=== PATIENT | male | born 1970 | race Caucasian/White ===

== ENCOUNTER 2025-07-08 02:48 | Inpatient (IN) | payer OTHER, SELFPAY ==
[2025-07-07 19:07] VITALS: BP 113/70
[2025-07-07 19:33] LABS: Hematocrit 40.5 % (39.0-52.0); Hemoglobin 13.6 g/dL (13.0-18.0); Mean Corp Hgb Conc. 33.6 g/dL (33.0-37.0); Mean Corpuscular Volume 86.4 fL (80.0-94.0); Nucleated Red Blood Cells % 0 % (-); Platelet Count 210 10^3/uL (130-400); Red Cell Dist. Width 12.4 % (11.5-14.5)
[2025-07-07 19:49] LABS: COVID-19 Antigen Negative (Negative)
[2025-07-07 19:54] LABS: ALT (SGPT) 13 U/L (0-50); AST (SGOT) 16 U/L (17-59); Albumin 3.9 g/dl (3.5-5.0); Alkaline Phosphatase 78 U/L (38-126); Blood Urea Nitrogen 16 mg/dl (9-20); Calcium 9.2 mg/dl (8.4-10.2); Carbon Dioxide 25 mmol/L (22-30); Chloride 104 mmol/L (98-107); Glucose 116 mg/dl (70-99); Potassium 4.1 mmol/L (3.5-5.1); Sodium 136 mmol/L (135-145); Total Protein 6.1 g/dl (6.3-8.2); eGFR > 60.00
[2025-07-07 23:36] VITALS: BP 101/61
[2025-07-08] VITALS (10 sets, daily range): BP systolic 91–120; BP diastolic 57–70; BMI 38.0
[2025-07-08 00:04] LABS: Urine Character Slightly Cloudy (Clear)
--- NOTE | 2025-07-08 00:30 | ED.GENMED ---
History of Present Illness
<Nicolás Garcia MD, Resident - Last Filed: 07/08/25 01:32>
General
Chief Complaint: Fever
Source: patient and family
Time Seen by Provider: 07/08/25 00:28
Nursing documentation reviewed up to this point in time: agreed with
History of Present Illness
History of Present Illness:
55-year-old male with a past medical history of hyperlipidemia, interstitial lung disease, sleep apnea, type 2 diabetes and recent nephrostomy tube placement 2 weeks ago for a large kidney stone that measured around 1 cm x 7 mm in his left ureter
comes to the ED due to chills and fever that started earlier this morning. Patient had some fatigue alongside the symptoms however had no shortness of breath, headaches, nausea, vomiting or abdominal pain. Patient did not have any back pain but
did endorse having fatigue. [place] from [place] and says that he called his urologist who told him to go to the ED for potential UTI.
Past History
<Nicolás Garcia MD, Resident - Last Filed: 07/08/25 01:32>
Past History
ED Past Medical History: Hypercholesterolemia, NIDDM, Other (Nephrostomy tube placement for left kidney stone), Other (Sleep apnea) and Other (Interstitial lung disease on cellcept)
ED Past Surgical History: Orthopedic (Hand surgery) and Urological (Nephrostomy tube placed 06/2025, kidney stone removal)
Patient has exhibited threatening behavior?: No
Review of Systems
<Nicolás Garcia MD, Resident - Last Filed: 07/08/25 01:32>
Review of Systems
Allergies reviewed?: Yes
Other source history: family
Constitutional: Reports fever, fatigue and chills
EENT: Reports no symptoms
Respiratory: Reports no symptoms
Cardiac: Reports no symptoms
ABD/GI: Reports no symptoms
: Reports no symptoms
Musculoskeletal: Reports no symptoms
Skin: Reports no symptoms
Neurological: Reports no symptoms
Endocrine: Reports no symptoms
Hematologic/Lymphatic: Reports no symptoms
Psychiatric: Reports no symptoms
Phy Exam
<Nicolás Garcia MD, Resident - Last Filed: 07/08/25 01:32>
General Physical Exam
General Presentation: well appearing and no apparent distress
General Skin: warm and dry
General Habitus: normal and obese
General Mental: alert
General Hydration: appears well hydrated
Cardiovascular Exam
Cardiovascular Exam: regular rate/rhythm, no edema and no murmur
Pulmonary Exam
Pulmonary Exam: lungs clear, no respiratory distress, no crackles and no wheezing
Gastrointestinal Exam
Gastrointestinal Exam: normal bowel sounds, non tender, soft and non distended
Musculoskeletal Exam
Musculoskeletal Exam: no edema
Skin Exam
Skin Exam: normal color and warm/dry
Course
<Nicolás Garcia MD, Resident - Last Filed: 07/08/25 01:32>
Orders/Labs/Results
Orders:
Orders
07/07/25 19:17
COVID-19 Antigen Urgent
Source: Nasal Swab
Influenza A+B Rapid Molecular Urgent
JOHN Source: Nasal Swab
Specimen Description:
07/07/25 19:19
Complete Blood Count/With Diff Urgent
Comprehensive Metabolic Panel Urgent
Lactic Acid Q4H
Comment: ON ICE, CANCEL 2ND ORDER IF FIRST LACTIC ACID LEVEL <2
07/07/25 23:33
Urinalysis Reflex To Culture Urgent
Date Specimen was Collected: 07/07/25
Time Specimen was Collected: 23:30
Urine Microscopic Reflex Cult Urgent
Urine Culture Urgent
JOHN Source: U
Specimen Description:
Date Specimen was Collected: 07/07/25
Time Specimen was Collected: 23:30
07/08/25 01:09
IV Insert/Care/Rem.- Treatment PRN
0.9% Sodium Chloride 1000 ml [Nss] 1,000 ml IV BOLUS
Pulse Ox/cont/shift [RESP] Urgent
Quantity: 1
07/08/25 01:12
US Renal Only W/O Bladder Urgent
Comment:
Reason For Exam: left nephrostomy tube presents w/ fever and chills
07/08/25 01:15
Blood Culture Q30M
JOHN Source: Blood/Venous
Specimen Description:
07/08/25 01:16
CefTRIAXone [Rocephin] 2,000 mg IV NOW STA
07/08/25 01:45
Blood Culture Q30M
JOHN Source: Blood/Venous
Specimen Description:
Abnormal Lab Results
07/07/25 07/07/25
19:19 23:33
WBC 15.0 H 10^3/uL
(4.8-10.8)
RBC 4.69 L 10^6/uL
(4.70-6.10)
Abs Immat Gran (auto) 0.1 H 10^3/uL
(0-0.05)
Absolute Neuts (auto) 11.9 H 10^3/uL
(1.4-6.5)
Absolute Monos (auto) 1.1 H 10^3/uL
(0.1-0.6)
Neutrophils % 78.7 H %
(42.2-75.2)
Lymphocytes % 13.2 L %
(20.5-51.1)
Glucose 116 H mg/dl
(70-99)
AST 16 L U/L
(17-59)
Total Protein 6.1 L g/dl
(6.3-8.2)
Urine Ketones 1+ A
(Negative)
Ur Occult Blood Reflex 4+ A
(Negative)
Leukocyte Esterase Rfl 3+ A
(Negative)
Urine RBC >100 A /HPF
(0-2)
Urine WBC (Reflex) >100 A /HPF
(0-5)
Urine Bacteria (Reflex) Many A
(Negative)
Urine Albumin (Reflex) 3+ A
(Neg - Trace)
07/07/25 19:19
07/07/25 19:19
Vital Signs
Initial and Last Documented VS:
Initial Vital Signs
Temp Pulse Resp BP Pulse Ox
99.7 F 85 20 113/70 98
07/07/25 19:07 07/07/25 19:07 07/07/25 19:07 07/07/25 19:07 07/07/25 19:07
Last Documented Vital Signs
Temp Pulse Resp BP Pulse Ox
99.7 F 85 20 95/60 94
07/07/25 19:07 07/07/25 19:07 07/07/25 19:07 07/08/25 00:30 07/08/25 00:39
<Lulu Perez, DO - Last Filed: 07/08/25 01:21>
Orders/Labs/Results
Orders:
Orders
07/07/25 19:17
COVID-19 Antigen Urgent
Source: Nasal Swab
Influenza A+B Rapid Molecular Urgent
JOHN Source: Nasal Swab
Specimen Description:
07/07/25 19:19
Complete Blood Count/With Diff Urgent
Comprehensive Metabolic Panel Urgent
Lactic Acid Q4H
Comment: ON ICE, CANCEL 2ND ORDER IF FIRST LACTIC ACID LEVEL <2
07/07/25 23:33
Urinalysis Reflex To Culture Urgent
Date Specimen was Collected: 07/07/25
Time Specimen was Collected: 23:30
Urine Microscopic Reflex Cult Urgent
Urine Culture Urgent
JOHN Source: U
Specimen Description:
Date Specimen was Collected: 07/07/25
Time Specimen was Collected: 23:30
07/08/25 01:09
IV Insert/Care/Rem.- Treatment PRN
0.9% Sodium Chloride 1000 ml [Nss] 1,000 ml IV BOLUS
Pulse Ox/cont/shift [RESP] Urgent
Quantity: 1
07/08/25 01:12
US Renal Only W/O Bladder Urgent
Comment:
Reason For Exam: left nephrostomy tube presents w/ fever and chills
07/08/25 01:15
Blood Culture Q30M
JOHN Source: Blood/Venous
Specimen Description:
07/08/25 01:16
CefTRIAXone [Rocephin] 2,000 mg IV NOW STA
07/08/25 01:45
Blood Culture Q30M
JOHN Source: Blood/Venous
Specimen Description:
Abnormal Lab Results
07/07/25 07/07/25
19:19 23:33
WBC 15.0 H 10^3/uL
(4.8-10.8)
RBC 4.69 L 10^6/uL
(4.70-6.10)
Abs Immat Gran (auto) 0.1 H 10^3/uL
(0-0.05)
Absolute Neuts (auto) 11.9 H 10^3/uL
(1.4-6.5)
Absolute Monos (auto) 1.1 H 10^3/uL
(0.1-0.6)
Neutrophils % 78.7 H %
(42.2-75.2)
Lymphocytes % 13.2 L %
(20.5-51.1)
Glucose 116 H mg/dl
(70-99)
AST 16 L U/L
(17-59)
Total Protein 6.1 L g/dl
(6.3-8.2)
Urine Ketones 1+ A
(Negative)
Ur Occult Blood Reflex 4+ A
(Negative)
Leukocyte Esterase Rfl 3+ A
(Negative)
Urine RBC >100 A /HPF
(0-2)
Urine WBC (Reflex) >100 A /HPF
(0-5)
Urine Bacteria (Reflex) Many A
(Negative)
Urine Albumin (Reflex) 3+ A
(Neg - Trace)
07/07/25 19:19
07/07/25 19:19
Vital Signs
Initial and Last Documented VS:
Initial Vital Signs
Temp Pulse Resp BP Pulse Ox
99.7 F 85 20 113/70 98
07/07/25 19:07 07/07/25 19:07 07/07/25 19:07 07/07/25 19:07 07/07/25 19:07
Last Documented Vital Signs
Temp Pulse Resp BP Pulse Ox
99.7 F 85 20 95/60 94
07/07/25 19:07 07/07/25 19:07 07/07/25 19:07 07/08/25 00:30 07/08/25 00:39
<Nicolás Garcia MD, Resident - Last Filed: 07/08/25 01:32>
MDM/Problems Addressed
Differential Diagnosis Includes:
Urinary tract infection, sepsis, pyelonephritis
MDM/Problems Addressed:
55-year-old male with a past medical history of hyperlipidemia, urinary stones with left nephrostomy tube 2 weeks ago and interstitial lung disease comes to the ED due to fever chills and fatigue that started this morning.
Urinalysis positive for UTI but may have some pyelonephritis due to potential nephrostomy tube blocking. Will get renal ultrasound.
CBC shows leukocytosis
No fever here (max 99.7F)
Blood pressure low (91/61), will give IV fluid bolus
Will get 2 sets of blood cultures
Will start antibiotic treatment with Rocephin
Will get Renal US to check placement of nephrostomy tube and if there might be any hydronephrosis
Chronic conditions affecting care: Other (Nephrolithiasis)
<Nicolás Garcia MD, Resident - Last Filed: 07/08/25 01:32>
*Pulse Oximetry
SaO2: 97
Oxygen Mode of Delivery: Room air
Patient hypoxic: no
*Critical Care Note
Total Time (30-74mins, 75-104mins- exclusive of procedures): Not Applicable
ED Attending Note
<Nicolás Garcia MD, Resident - Last Filed: 07/08/25 01:32>
-
Portions of this chart may have been created with voice recognition software.� Occasional wrong word or��sound alike� substitutions may have occurred due to the inherent limitations of voice recognition software.
<Lulu Perez DO - Last Filed: 07/08/25 01:21>
ED Attending Note
Patient seen and examined by attending physician: Yes
I performed the substantive portion of visit, reviewed & personally made and approve the management plan that is documented in note by myself or AMNA.: Yes
ED Attending Note:
This is a 55-year-old gentleman with history of interstitial lung disease, maintained on CellCept. History of xkl-mfrdflu-nexvxmogy diabetes maintained on Mounjaro as well as history of hyperlipidemia, GERD. He also has history of kidney stones
and was intermittently found to have a large obstructing left renal pelvic stone on follow-up chest imaging a few weeks ago. Unsuccessful ureteral stenting thus a left nephrostomy tube was placed 2 weeks ago. He follows with specialist at [facility]. He has a follow-up appointment with urologist on Wednesday, July 10.
He is camping this weekend, locally and developed chills, aches, fever this afternoon. No cough no shortness of breath, he denies flank pain, no dysuria urgency or hematuria. Urostomy tube continues to function normally.
55-year-old gentleman appears his stated age, awake and alert, pleasant, appears in no acute distress. Low-grade fever noted. Also noted to be borderline hypotensive with systolic 95-100.
Oral mucosa is moist.
Lungs are clear to auscultation. No respiratory distress.
Abdomen is soft without appreciable tenderness. No CVA tenderness. Left nephrostomy tube in place.
Concern for sepsis, UTI, other consideration is pneumonia however he has had no pulmonary symptoms.
With history of interstitial lung disease, chronically maintained on CellCept as well as history of diabetes he is at risk for immunocompromise.
Labs reveal elevated white blood cell count of 15. Chemistries are unremarkable. Lactic acid reassuring at 1.1.
Urinalysis consistent with UTI with many bacteria, greater than 100 WBCs, greater than 100 RBCs. Highly concerning for pyelonephritis and due to immunocompromise, hypotension, concern for bacteremia/sepsis.
Will initiate IV fluid bolus, initiate IV antibiotics. Blood cultures x 2. Urine culture is pending.
Due to concern for rapid decompensation, further hypotension patient will require acute hospitalization.
Discharge Plan
Departure
Patient Disposition: Admit
Date of Disposition: 07/08/25
Time of Disposition: 01:31
Admit to: Med/Surg
Admit to doctor: Dr. Kc
Presentation/result/management discussed w/ accepting MD/DO: Hospitalist
Patient with high blood pressure during this ER visit?: No
Condition: Serious
Discharge Problem:
Urinary tract infection
Referrals:
UNKNOWN - PT DOES,NOT KNOW [Family Provider]
Interventions
Interventions:
*Risk Screen - Suicide Last Done: 07/07/25 19:07
*General Assessment Last Done: 07/07/25 19:07
*Neglect/Abuse Screening Last Done: 07/07/25 19:07
Discharge Date and Time
Print Language: DIVEHI
[2025-07-08 00:45] LABS: Urine Squamous Cell >30 /LPF (Few)
[2025-07-08 00:46] LABS: Urine White Cell >100 /HPF (0-5)
[2025-07-08 00:49] LABS: Urine Red Blood Cell >100 /HPF (0-2)
--- NOTE | 2025-07-08 02:15 | HPS.HSE ---
Family Physician
-
Family Physician: NOT KNOW UNKNOWN - PT DOES
Chief Complaint
-
Fever
History of Present Illness
This is a 55-year-old with past medical history of interstitial lung disease on CellCept, hyperlipidemia, KI on CPAP, GERD and diet-controlled diabetes who presents to the emergency department with fever.
Patient reportedly has left-sided nephrostomy tube that was placed for an obstructing left ureteral stone measuring about 1 cm in maximum extent by 0.7 cm. This was done at [facility] in [place]. Patient had no febrile illness at that
time. Tube was placed for decompression and he was started on omeprazole with follow-up coming up this Wednesday or Wednesday.
At home he started feeling sick this morning. He felt weak. He had chills. They measured a temperature of greater than 101 degrees at home and patient was brought to the emergency department.
He noticed no bloody drainage from the catheter site. The nephrostomy tube continues to drain yellow urine in the same rate as previously. He denies having any dysuria at home. He denies having any flank pain.
He denies having any cough. He denies any shortness of breath.
In the emergency department his Tmax was 99.7, blood pressure was 99/60 with a pulse of 85 and he was satting 98% on room air.
White count was 15 with normal hemoglobin and platelets. His electrolytes BUN and creatinine were all normal. UA was positive for leukocyte esterase WBCs and bacteria.
Ultrasound of the kidneys pending
Medical History
Past Medical History
Past Medical History: Reports Hypercholesterolemia, NIDDM and Other (Interstitial lung disease on CellCept, nephrolithiasis, sleep apnea)
Past Surgical History: Reports Urological (Nephrostomy tube)
Social History
Tobacco: Non-smoker
Alcohol: None
Drug: None
Personal:
Family History
Family History: Not pertinent
Allergies / Home Medications
Allergies reflects when Allergies were last updated in [employer].
Home Medications with original date entered in [employer]
Allergy/Medication List:
Allergies
Allergy/AdvReac Type Severity Reaction Status Date / Time
No Known Allergies Allergy Unverified 07/07/25 19:06
Tamsulosin 0.4 mg capsule, 0.4 mg p.o. daily
CellCept 500 mg tablets, 1000 mg p.o. twice daily
Omeprazole 40 mg tablets, 40 mg p.o. daily
Rosuvastatin 20 mg tablets, 20 mg p.o. every afternoon
Review of Systems
-
History Source: Patient
Constitutional: Reports Fever, Fatigue and Chills
EENT: Reports No Symptoms
Respiratory: Reports No Symptoms
Cardiac: Reports No Symptoms
Abdomen/GI: Reports No Symptoms
: Reports Other (Nephrostomy tube)
Musculoskeletal: Reports No Symptoms
Skin: Reports No Symptoms
Neurological: Reports No Symptoms
Endocrine: Reports No Symptoms
Hematologic/Lymphatic: Reports No Symptoms
Psych: Reports No Symptoms
Physical Exam
Vital Signs
Vital Signs
Temp Pulse Resp BP Pulse Ox
99.7 F 85 20 95/60 94
07/07/25 19:07 07/07/25 19:07 07/07/25 19:07 07/08/25 00:30 07/08/25 00:39
Physical Exam
General: Well Developed, Well Nourished and No Apparent Distress
HEENT: NormoCephalic, Moist mucous membranes and Atraumatic
Respiratory: Clear
Cardiac: S1/S2 and Regular Rhythm; No Murmur or Rub
GI: Soft, Non Tender, Non Distended and Normal Bowel Sounds; No Organomegaly
Rectal: Deferred by Provider
Genito-urinary: Nephrostomy Tubes (Left-sided, site clean dry and intact)
Musculoskeletal: No Clubbing, No Cyanosis and No Edema
Skin: No Rash
Neuro: Nonfocal/grossly intact
Laboratory Results
-
07/07/25 19:19
07/07/25 19:19
Laboratory Results
Lactic Acid Cancelled 07/07/25 23:15
Total Bilirubin 1.2 mg/dl (0.2-1.3) 07/07/25 19:19
AST 16 U/L (17-59) L 07/07/25 19:19
ALT 13 U/L (0-50) 07/07/25 19:19
Alkaline Phosphatase 78 U/L (38-126) 07/07/25 19:19
Data Reviewed
-
Ultrasound: Image Personally Visualized and interpreted
Lab Data: Labs Reviewed by me
Old Records: Reviewed
Impression/Plan
-
IMPRESSION:
55-year-old coming in with chills and fever and found to have positive UA, he is status post left nephrostomy tube placement for obstructing left ureteral stone 2 weeks ago. He is on CellCept for ILD. He is hemodynamically stable and currently
afebrile but still feels somewhat ill.
PLAN:
Complicated UTI -suspect to be related kidney infection/pyelonephritis
- Admit to MedSurg
- Renal ultrasound pending
- Blood cultures
- Urine culture from the tube and urethra
- IV ceftriaxone 2g daily for now
- consult to urology if u/s shows persistent obstruction
- continue tamsulosin
ILD - idopathic, stable and w/o any current pulm symptoms
- continue cellcep 1g bid for now
DVT PPX - lovenox sq
Code status - Full Code
[2025-07-08] MEDS: NSS 1000 IV (02:28)
[2025-07-08] MEDS: ROCEPHIN 2000 MG IV (02:29)
[2025-07-08 03:18] LABS: Urine Character Clear (Clear)
[2025-07-08 03:30] LABS: Urine Squamous Cell >30 /LPF (Few); Urine White Cell >100 /HPF (0-5)
--- NOTE | 2025-07-08 05:31 | PTCARENOTE ---
Pt. arrived to unit from ED via stretcher. Pt. safely ambulated from stretcher to bed in room 319-1 on . Pt. AAOx3 and able to make needs known. No c/o pain. Nephrostomy tube intact to L flank, draining clear yellow urine. Oriented to unit.
Call ugarte within reach. Plan of care ongoing.
[2025-07-08 07:33] LABS: Hematocrit 38.4 % (39.0-52.0); Hemoglobin 13.0 g/dL (13.0-18.0); Mean Corp Hgb Conc. 33.9 g/dL (33.0-37.0); Mean Corpuscular Volume 87.3 fL (80.0-94.0); Platelet Count 182 10^3/uL (130-400); Red Cell Dist. Width 12.4 % (11.5-14.5)
[2025-07-08 07:47] LABS: Blood Urea Nitrogen 13 mg/dl (9-20); Calcium 8.6 mg/dl (8.4-10.2); Carbon Dioxide 23 mmol/L (22-30); Chloride 108 mmol/L (98-107); Estimated Creatinine Clearance 111 ml/min; Glucose 129 mg/dl (70-99); Potassium 4.1 mmol/L (3.5-5.1); Sodium 136 mmol/L (135-145); eGFR > 60.00
[2025-07-08] MEDS: FLOMAX 0.4 MG PO (09:27)
[2025-07-08] MEDS: PROTONIX 40 MG PO (09:27)
[2025-07-08] MEDS: CRESTOR 20 MG PO (09:27)
[2025-07-08] MEDS: CELLCEPT 1000 MG PO ×2 (09:33→20:39)
--- NOTE | 2025-07-08 10:52 | W.PN.HOSP.TC ---
Today's Communication/Plan
-
see outlined plan below
Assessment / Plan
Assessment / Plan
Assessment:
Complicated UTI in male (pyelonephritis)
- Renal US: 1.3 cm nonobstructing left renal stone.
- patient with known renal stone finding. Sees Urologist via [place] in [place]. Reports multiple attempts at definitive stone procedure without success therefore nephrostomy tube was placed. has an appointment with [place] [facility] [facility] Wednesday.
- if any signs of sepsis, fevers or MANSOOR will have to involve Urology but will hold off for now
- For now, will continue Rocephin, day 2 and follow urine/blood cultures
- continue Flomax
Hx of idiopathic ILD
- continue Cellcept
DVT ppx: Lovenox
Code: Full
Anticipated Discharge: 24 - 48 hours
Subjective/Interval History
-
Date of Service: July 08, 2025
resting comfortably, no complaints at present
Objective Data
-
Labs:
Laboratory Results
07/08/25
06:40
WBC 13.8 H
Hgb 13.0
Hct 38.4 L
Plt Count 182
Sodium 136
Potassium 4.1
Chloride 108 H
Carbon Dioxide 23
BUN 13
Creatinine 0.9
Glucose 129 H
Calcium 8.6
Vital Signs:
Vital Signs
Temp Pulse Resp BP Pulse Ox
99.0 F 83 16 98/58 94
07/08/25 07:57 07/08/25 07:57 07/08/25 07:57 07/08/25 07:57 07/08/25 07:57
Physical Exam
-
General: No Apparent Distress
HEENT: Normocephalic and Atraumatic
Respiratory: Negative Wheezes
Cardiac: Regular Rhythm and S1/S2
GI: Soft
Genito-urinary: Nephrostomy Tubes (L sided)
Neuro: AO x 3
Psych: Calm
Data Reviewed
-
Total Time Spent with Patient (in minutes): 42
Labs: Labs Reviewed by me
[2025-07-08] MEDS: TYLENOL 650 MG PO (14:25)
[2025-07-08] MEDS: LOVENOX 40 MG SC (17:28)
[2025-07-09] MEDS: STERILE WATER FOR INJECTION 10 ML IV (00:21)
[2025-07-09] MEDS: ROCEPHIN 2000 MG IV (00:27)
[2025-07-09 07:23] LABS: Hematocrit 41.2 % (39.0-52.0); Hemoglobin 13.7 g/dL (13.0-18.0); Mean Corp Hgb Conc. 33.3 g/dL (33.0-37.0); Mean Corpuscular Volume 87.8 fL (80.0-94.0); Platelet Count 174 10^3/uL (130-400); Red Cell Dist. Width 12.3 % (11.5-14.5)
[2025-07-09 07:52] LABS: Blood Urea Nitrogen 12 mg/dl (9-20); Calcium 9.3 mg/dl (8.4-10.2); Carbon Dioxide 25 mmol/L (22-30); Chloride 104 mmol/L (98-107); Estimated Creatinine Clearance 111 ml/min; Glucose 133 mg/dl (70-99); Potassium 4.1 mmol/L (3.5-5.1); Sodium 138 mmol/L (135-145); eGFR > 60.00
[2025-07-09 08:19] VITALS: BP 105/71
[2025-07-09] MEDS: CELLCEPT 1000 MG PO (08:28)
[2025-07-09] MEDS: FLOMAX 0.4 MG PO (08:29)
[2025-07-09] MEDS: PROTONIX 40 MG PO (08:29)
[2025-07-09] MEDS: CRESTOR 20 MG PO (08:29)
--- NOTE | 2025-07-09 10:17 | W.PN.HOSP.TC ---
Today's Communication/Plan
-
Will ask ID for recommendations
Likely discharge today
Assessment / Plan
Assessment / Plan
Physical Exam
General: Well Developed, Well Nourished and No Apparent Distress
HEENT: Normocephalic, Moist mucous membranes and Atraumatic
Respiratory: Clear
Cardiac: S1/S2 and Regular Rhythm; No Murmur or Rub
GI: Soft, Non Tender, Non Distended and Normal Bowel Sounds;
Rectal: Deferred by Provider
Genito-urinary: Nephrostomy Tubes (Left-sided, site clean dry and intact)
Musculoskeletal: No Clubbing, No Cyanosis and No Edema
Skin: No Rash
Neuro: Nonfocal/grossly intact
Psych: calm
A/P:
Complicated UTI in male (pyelonephritis). Not sepsis
- Renal US: 1.3 cm nonobstructing left renal stone. Known to have left renal stone
- patient with known renal stone finding. Sees Urologist via [place] in [place]. Reports multiple attempts at definitive stone procedure without success therefore nephrostomy tube was placed. has an appointment with [place] [facility] Tuesday 07/10 around 8
am. Patient wants to keep the appointment, it was hard to get .
Pt feels much better
No pain or fever
Tolerating diet
WBC normal now
Urine culture is negative
Negative lactic acid
Normal renal function
Received IV Rocephin
Will consult ID
Hx of idiopathic ILD
- continue CellCept
DVT ppx: Lovenox
Code: Full
Total discharge time spent to see the patient, examine the patient, review data and lab result, discuss discharge plan with patient, his , nursing staff around 65 minutes
Anticipated Discharge: Today
Subjective/Interval History
-
Date of Service: July 09, 2025
He feels better
Denies renal colic or fever
He wants to leave the hospital
Objective Data
-
Labs:
Laboratory Results
07/09/25
06:27
WBC 10.5
Hgb 13.7
Hct 41.2
Plt Count 174
Sodium 138
Potassium 4.1
Chloride 104
Carbon Dioxide 25
BUN 12
Creatinine 0.9
Glucose 133 H
Calcium 9.3
Vital Signs:
Vital Signs
Temp Pulse Resp BP Pulse Ox
98.5 F 84 16 105/71 98
07/09/25 08:19 07/09/25 08:19 07/09/25 08:19 07/09/25 08:19 07/09/25 08:19
I&O
07/08/25 07/09/25 07/10/25
06:59 06:59 06:59
Intake Total 840 / 840
Output Total 20 / 20
Balance 820 / 820
--- NOTE | 2025-07-09 11:31 | CON.ID ---
Consultation
-
Date/Time Consultation Requested: 07/09/2025 0641
Date/Time Consultation Performed: 07/09/2025 1045
Requesting Provider: Dr. Ding
Performing Provider: Dr. Mcbride
Reason for Consultation: Complicated urinary tract infection
Chief Complaint / Past History
History of Present Illness
Good Reynolds is a 55-year-old man with a significant past medical history of nephrolithiasis being seen in infectious disease consultation at the request of Dr. Ding regarding a complicated urinary tract infection. History is obtained from chart
review, along with patient interview.
The patient reports that he has a underlying history of interstitial lung disease and in January underwent CT imaging. At that point in time the imaging cuts also included kidney which showed inflammation and on subsequent imaging the patient was
ultimately found to have nephrolithiasis. He was sent to Urology and sonic lithotripsy was attempted but was unsuccessful. Laser lithotripsy was then pursued, but was likewise unsuccessful as they could not get up into the kidney with the laser.
These procedures were performed at [facility] in [facility]. Following the unsuccessful laser lithotripsy, a left PCN was placed 2 weeks ago and a consultation was placed for a urologist who could perform further therapeutic
modalities (that consultation is to happen tomorrow).
The patient was in the area this past week, and developed fevers and chills and progressive fatigue. He ultimately presented to the emergency room on 07/08 for further workup. Here he was found to have a leukocytosis, and he was placed on empiric
antibiotics. Today is day 3 of antibiotics and he reports overall he is feeling much improved. His temperatures have resolved. He denies any pain.
Past History
Additional Past Medical History:
HLD
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
KI
DM type II
Nephrolithiasis
Additional Past Surgical History:
Hand surgery
Left PCN placement
Allergy History:
No Known Allergies Allergy (Unverified 07/07/25 19:06)
Medications Reviewed: Yes
Current Antibiotics:
Ceftriaxone 2 gm IV q.24 hours
Social History
Tobacco: Non-Smoker
Alcohol: Occasional
Drug: None
Personal:
Living: With Family
Employment: Employed
Family History
Family History: Not Pertinent
Review of Systems
Vital Signs
Temp Pulse Resp BP Pulse Ox
98.5 F 84 16 105/71 98
07/09/25 08:19 07/09/25 08:19 07/09/25 08:19 07/09/25 08:19 07/09/25 08:19
Physical Exam
Physical Exam
Constitutional: No Acute Distress, Comfortable, Non-toxic and Obese
Head: Normocephalic
Eyes: Pupils Equal, Pupils Round, No Conjunctival Hemorrhage and Sclera Anicteric
Oral: No Thrush and No Ulcers
Cardiovascular: Regular Rate and S1/S2; Negative S3/S4
Pulmonary: Clear; Negative Wheezes, Rales or Rhonchi
Gastrointestinal: Soft, Non Tender, Non Distended and Normal Bowel Sounds
Genito-Urinary: Clear Urine and Other (Left PCN in place.); Negative Suprapubic Tenderness, CVA Tenderness, Turbid Urine or Hematuria
Extremities: Negative Edema, Cyanosis or Erythema
Neurological: Awake and Alert
Psychological: Calm
Lab / Diagnostic Study Results
07/09/25 06:27
07/09/25 06:27
Abs Immat Gran (auto) 0.1 10^3/uL (0-0.05) H 07/07/25 19:19
Absolute Neuts (auto) 11.9 10^3/uL (1.4-6.5) H 07/07/25 19:19
Absolute Lymphs (auto) 2.0 10^3/uL (1.2-3.4) 07/07/25 19:19
Absolute Monos (auto) 1.1 10^3/uL (0.1-0.6) H 07/07/25 19:19
Absolute Basos (auto) 0.0 10^3/uL (0-0.2) 07/07/25 19:19
Immature Gran % 0.4 % (0-0.5) 07/07/25 19:19
Neutrophils % 78.7 % (42.2-75.2) H 07/07/25 19:19
Lymphocytes % 13.2 % (20.5-51.1) L 07/07/25 19:19
Monocytes % 7.4 % (1.7-9.3) 07/07/25 19:19
Eosinophils % 0.1 % (0-6) 07/07/25 19:19
Basophils % 0.2 % (0-2) 07/07/25 19:19
Lactic Acid Cancelled 07/07/25 23:15
Ur Squamous Epith Cells >30 /LPF (Few) 07/08/25 03:10
Microbiology Results
Micro:
07/08/25 03:10 Urine Culture - Final
Urine No Significant Growth
07/08/25 02:27 Blood Culture - Preliminary
Blood/Venous No Growth in 24 hours- Final report to follow
07/08/25 02:28 Blood Culture - Preliminary
Blood/Venous No Growth in 24 hours- Final report to follow
07/07/25 23:33 Urine Culture - Pending
Urine
07/07/25 19:17 Influenza Types A & B (LAKESHA) - Final
Nasal Swab Negative for Influenza A & B, NAAT
Negative results must be combined with clinical observations
and patient history.
Nucleic Acid Amplification test (NAAT)performed on the
[employer] platform.
Imaging:
07/08/2025 Renal ultrasound: mild left hydronephrosis. Mild fullness in the right collecting system. No abnormal solid or complex renal masses seen. A shadowing echogenic focus in the left lower kidney measures 1.3 cm consistent with a
nonobstructing stone. Please see full dictation for additional detail.
Assessment / Plan
Complicated urinary tract infection
Fevers; improved
Leukocytosis; improved
Nephrolithiasis with left PCN in place
HLD
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
KI
DM type II
Nephrolithiasis
Recommendations:
Patient overall improved from admission, with normalization of white count.
He relates that he has an appointment tomorrow with Urology in order to further delineate therapy for his stone. This appointment is near his home in [facility].
Given resolution of fevers and white count, it is highly likely that he is on appropriate antibiotic coverage.
I have spoke to him at length about risks and benefits of discharge at this point in time, noting that urine cultures have not been finalized, but also noting that he is likely on appropriate antibiotic therapy given resolution of his symptoms.
He would like to be discharged, and I have no objection to transitioning him to oral cefdinir 300 mg BID, to continue for a 10-day course. He understands that cultures are still pending, but these can be monitored and his local physicians updated
if necessary.
Care Review
Plan reviewed with: Physician (Hospitalist)
[2025-07-09] MEDS: OMNICEF 300 MG PO (12:02)
--- NOTE | 2025-07-09 12:07 | CM ---
Patient seen at bedside
IA completed
discharged today- IMM n/a
Lives with in 2 story home in [place]
Denies DME
Denies VN/Rehab
Denies insecurities
PCP: Grace [facility]a
Pharmacy: [place], [place]
PLAN: Home, no needs
to transport
--- NOTE | 2025-07-09 13:16 | PN.CDI ---
Addendum entered and electronically signed by Betsey Ding MD 07/09/25 13:27:
Yes, UTI is related to/associated with/due to nephrostomy tube.
Original Note:
CDI
- -
CDI:
Physician Documentation Request
Admit Date: 07/08/25 02:48
Dear Doctor Toña,
Clinical Indicators:
Patient admitted with complicated UTI.
07/08 H & P, 'he is status post left nephrostomy tube placement for obstructing left ureteral stone 2 weeks ago.'
Please clarify if there is a relationship between the UTI and nephrostomy tube :
Yes, UTI is related to/associated with/due to nephrostomy tube.
No, UTI is not related to/associated with/due to nephrostomy tube but it is due to ___. (Please specify)
Unable to determine
Use of terms such as suspected, likely, concern for, or probable (associated with a specific diagnosis that is being evaluated, monitored, or treated as if it exists) are acceptable and can be coded in the inpatient setting, when documented at the
time of discharge.
Thank you,
VJ Ly RN
CDI Specialist
available via tiger text
Please use your independent medical judgment in providing your response.
--- NOTE | 2025-07-09 13:31 | W.DCSUMMARY ---
Discharge Summary
Discharge Data
Date of Admission: 07/08/25
Date of Discharge: 07/09/25
-
Pending Results: No
Hospital Course
55 years old male who presented with fever, chills and fatigue. He was found to have leukocytosis and was a placed on empiric antibiotics for treatment of urinary tract infection. Patient was evaluated by infectious diseases doctor. Patient
started to improve with resolution of fever and leukocytosis. Blood culture did not show any growth. Urine culture done on July 08 did not show any growth. Patient was started on 10 days course for complicated urinary tract infection. Patient
has history of left kidney stone and left nephrostomy. He was following with urologist in [place] and he had an appointment on July 10 around 8 AM. Patient wanted to keep the appointment because it was hard to get. He felt better
and remained hemodynamically stable. Patient was discharged in a stable condition.
Discharge Plan
-
Patient Disposition: Home (Routine Discharge)
Discharge Diagnosis/Procedures: UTI
You are given IV antibiotic. Urine and blood culture did not show any growth.
We called in the medicine for you.
Diet: As tolerated
Referrals:
UNKNOWN - PT DOES,NOT KNOW [Family Provider]
Prescriptions:
New
cefdinir 300 mg capsule
300 mg PO Q12H Qty: 19 0RF
Continued
omeprazole 40 mg Capsule,Delayed Release(Dr/Ec)
40 mg PO DAILY
mycophenolate mofetil [CellCept] 500 mg Tablet
1,000 mg PO BID
tamsulosin 0.4 mg Capsule
0.4 mg PO DAILY
rosuvastatin 20 mg Tablet
20 mg PO DAILY
Discharge Orders:
Discharge Patient (As Directed); Ordered 07/09/25
Ordered By: Betsey Ding
Discharge Date and Time
Discharge Date/Time: 07/09/25 12:26
Print Language: WELSH
== END 2025-07-09 12:26 | disposition home or self-care (01) | DRG 699 ==
LOC: 3 WEST ACU 02:48
PROVIDERS: Internal Medicine; Student in an Organized Health Care Education/Training Program; ADMITTING PHYSICIAN Internal Medicine; ATTENDING PHYSICIAN Internal Medicine; EMERGENCY PHYSICIAN Emergency Medicine; OTHER PHYSICIAN Internal Medicine Infectious Disease
DX: T83.512A Infection and inflammatory reaction due to nephrostomy catheter, initial encounter (principal); J84.9 Interstitial pulmonary disease, unspecified; N39.0 Urinary tract infection, site not specified; N20.0 Calculus of kidney; E78.00 Pure hypercholesterolemia, unspecified; E11.9 Type 2 diabetes mellitus without complications; E66.9 Obesity, unspecified; K21.9 Gastro-esophageal reflux disease without esophagitis; G47.33 Obstructive sleep apnea (adult) (pediatric); Y83.1 Surgical operation with implant of artificial internal device as the cause of abnormal reaction of the patient, or of later complication, without mention of misadventure at the time of the procedure; Y92.9 Unspecified place or not applicable; Z87.442 Personal history of urinary calculi; Z68.37 Body mass index [BMI] 37.0-37.9, adult; Z11.52 Encounter for screening for COVID-19; Z79.85 Long-term (current) use of injectable non-insulin antidiabetic drugs; Z93.6 Other artificial openings of urinary tract status
CPT/HCPCS: 76775; 80048; 80053; 81003; 81015; 83605; 85025; 85027; 87040; 87077; 87086; 87186; 87502; 87811; 94760; 96361; 96374; 99285